=== PATIENT | male | born 1940 | race Caucasian/White ===

== ENCOUNTER → 2021-01-05 11:16 | Outpatient (CLI) | payer MEDICARE, OTHER, SELFPAY ==
--- NOTE | ~2021-01-05 | MR_ITS ---
EXAMINATION: MR cervical spine wo con DATE: 01/05/2021 12:27 INDICATION: Chronic neck pain radiating down the right arm. TECHNIQUE: Magnetic resonance imaging (MRI) of the cervical spine was performed without intravenous c ontrast. Sequences included sagittal T2-weighted FSE, sagittal T2-weighted FS FSE, sagittal T1-weight ed FSE, axial MERGE and axial T2-weighted FSE. 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 Mild vertebral body height loss at C5 and C6. Moderate disc height los s at C6-C7 and mild disc height loss at C5-C6. Bone marrow signal intensity is normal. Cord signal i ntensity is normal. Cervical soft tissues are unremarkable. The following disc levels are specificall y discussed: C2-C3: Disc is bulging eccentric to the left. There is mild right and moderate left uncovertebral juany nt osteoarthritis. There is moderate bilateral facet joint osteoarthritis. There is mild right and mo derate left neural foraminal stenosis. There is minimal central canal stenosis. C3-C4: The posterior disc space and bilateral uncovertebral and facet joints are fused. There is old right neural foraminal stenosis. There is no central canal stenosis. C4-C5: Disc is bulging. There is mild right and moderate left uncovertebral joint osteoarthritis. The re is moderate right and severe left facet joint osteoarthritis. There is moderate right and severe l eft neural foraminal stenosis. There is mild central canal stenosis with flattening of the ventral cronin rface of the cord. C5-C6: Eccentric to the left disc bulge. There is severe bilateral uncovertebral joint osteoarthritis . There is mild to moderate bilateral facet joint osteoarthritis. There is moderate to severe bilater al neural foraminal stenosis. There is mild to moderate central canal stenosis measuring 8 mm AP in t he mid sagittal plane. The disc bulge indents the left ventral surface of the cord with effacement of the majority of the CSF signal surrounding the cord. C6-C7: Disc is bulging. There is moderate right and severe left uncovertebral joint osteoarthritis. T here is mild right and moderate left facet joint osteoarthritis. There is moderate right and moderate to severe left neural foraminal stenosis. There is mild central canal stenosis. C7-T1: Disc is minimally bulging. There is mild bilateral uncovertebral joint osteoarthritis. There i s a right and severe left facet joint osteoarthritis. There is mild right and mild to moderate left n eural foraminal stenosis. There is no central canal stenosis. IMPRESSION: 1. 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 Reviewed, dictated and finalized at location [facility] [employer] IMPRESSION: 1. 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
== END ==
PROVIDERS: Visit Provider Nurse Practitioner Family
DX: M47.892 Other spondylosis, cervical region (principal); Z98.1 Arthrodesis status
CPT/HCPCS: 72141

== ENCOUNTER → 2021-02-09 01:20 | Outpatient (CLI) | payer MEDICARE, OTHER, SELFPAY ==
[2021-02-09 19:13] LABS: SARS-CoV-2 RNA PCR Negative
== END ==
PROVIDERS: PCP Family Medicine; Visit Provider Internal Medicine Gastroenterology
DX: Z01.812 Encounter for preprocedural laboratory examination (principal); Z20.822 Contact with and (suspected) exposure to COVID-19
CPT/HCPCS: C9803; U0003; U0005

== ENCOUNTER 2021-02-13 03:06 | Day surgery (SDC) | payer MEDICARE, OTHER, SELFPAY ==
[2021-01-31 14:18] VITALS: BMI 27.5
[2021-02-13 07:50] VITALS: BP 140/103; PULSE 88; RESP 17; TEMP 36.5; O2SAT 98; BMI 27.6
[2021-02-13] MEDS: LACTATED RINGERS 1,000 ML 150 ML IV CONT (08:05)
--- NOTE | 2021-02-13 08:25 | PM.HPGS ---
History of Present Illness History of Present Illness Consent: Risks, benefits, and alternatives have been discussed and questions answered. Patient agrees to proceed with procedure. Chief complaint: Neoplasm Screening, Hx of Colon Polyps Narrative: Arnalod Irby is a 81 year old male referred for colon cancer screening Review of Systems Review of Systems: All systems reviewed & are unremarkable except as noted in HPI and below PMFSH Past Medical History Medical History Anemia BMI 27.0-27.9,adult Elevated cholesterol Essential (primary) hypertension Screen for colon cancer Screening for prostate cancer Family History Family History Mother Hypertension Cerebrovascular accident Family history of coronary artery disease Sibling Family history of coronary artery disease Other Family history of cardiovascular disease Social History Social History Smoking status: Never smoker Alcohol intake: never Substance use: never Substance use type: does not use Living arrangements: with family Spiritual care concerns: No Meds Home Medications and Allergies Home Medications Medication Instructions Recorded Confirmed Type lisinopril 20 mg tablet 20 mg PO DAILY #90 tablet 12/10/20 02/13/21 Rx aspirin 81 mg PO DAILY 01/31/21 02/13/21 History ferrous sulfate [Iron (ferrous 325 mg PO DAILY 01/31/21 02/13/21 History sulfate)] omeprazole 20 mg PO DAILY 01/31/21 02/13/21 History Allergies Allergy/AdvReac Type Severity Reaction Status Date / Time No Known Allergies Allergy Mild Verified 02/13/21 07:49 Vital Signs Vital Signs - 24 hr 02/13/21 07:50 Temperature 36.5 C Pulse Rate 88 Respiratory Rate 17 Blood Pressure 140/103 H Pulse Oximetry 98 Exam Resp: Auscultation: clear to auscultation bilaterally Cardio: Rate: regular rate Rhythm: regular rhythm GI: GI Palp: Yes Soft to palpation and No Tenderness to palpation present (GI) Assessment and Plan Assessment and plan (1) Screen for colon cancer: Code(s): Z12.11 - Encounter for screening for malignant neoplasm of colon Status: Acute Assessment and Plan: Colonoscopy with possible biopsy or polypectomy or cautery or injection of substances.
--- NOTE | 2021-02-13 08:41 | WPDANESEPPF ---
Anes - Initial Pre Proc Eval Procedure: Operation Date: 02/13/21 09:00 Proposed Procedures p Screening Colonoscopy - Telly Escobedo MD Date/Time: 02/13/21 08:41 Surgeon: Telly Escobedo MD Pre Op Diagnosis: Neoplasm Screening, Hx of Colon Polyps Patient Data Age: 81 Gender: M Height: 5 ft 5 in Weight: 75.2 kg Last Vital Signs Temp 97.7 F 02/13/21 07:50 Pulse 88 02/13/21 07:50 Resp 17 02/13/21 07:50 BP 140/103 H 02/13/21 07:50 Pulse Ox 98 02/13/21 07:50 Allergies Allergy/AdvReac Type Severity Reaction Status Date / Time No Known Allergies Allergy Mild Verified 02/13/21 07:49 Home Medications Medication Instructions Recorded Confirmed Type lisinopril 20 mg tablet 20 mg PO DAILY #90 tablet 12/10/20 02/13/21 Rx aspirin 81 mg PO DAILY 01/31/21 02/13/21 History ferrous sulfate [Iron (ferrous 325 mg PO DAILY 01/31/21 02/13/21 History sulfate)] omeprazole 20 mg PO DAILY 01/31/21 02/13/21 History Patient hx anesthesia problems: none Family hx anesthesia problems: none PMFSH Past Medical History Medical History Anemia BMI 27.0-27.9,adult Elevated cholesterol Essential (primary) hypertension Screen for colon cancer Screening for prostate cancer Family History Family History Mother Hypertension Cerebrovascular accident Family history of coronary artery disease Sibling Family history of coronary artery disease Other Family history of cardiovascular disease Social History Social History Smoking status: Never smoker Alcohol intake: never Substance use: never Substance use type: does not use Living arrangements: with family Spiritual care concerns: No Anes - Eval Final PreProcedure Day of Procedure 02/13/21 08:41 Patient weight: normal Heart: regular rate and rhythm Lungs: clear to auscultation Airway: Mallampati scale class II Neurological: alert and oriented Last oral intake: >/= 8 hours ASA classification: II Emergent: no Anesthetic plan: proceed Anesthesia type and monitoring: general GIVS and standard monitoring Informed Consent: The patient's anesthetic plan and its attendant risks and benefits were discussed with the patient/family/POA. Questions were solicited and answers provided to the satisfaction of the patient/family/POA.
[2021-02-13 09:14] VITALS: BP 103/62; PULSE 72; RESP 19; O2SAT 98
[2021-02-13 09:24] VITALS: BP 141/76; PULSE 69; RESP 21; O2SAT 99
[2021-02-13 09:34] VITALS: BP 132/73; PULSE 72; RESP 21; O2SAT 100
== END 2021-02-13 09:45 | disposition home or self-care (01) ==
PROVIDERS: PCP Family Medicine; Visit Provider Internal Medicine Gastroenterology
PROC: 0DJD8ZZ Inspection of Lower Intestinal Tract, Via Natural or Artificial Opening Endoscopic (ICD-10-PCS; CPT 45378; principal; 2021-02-13 09:00)
DX: Z12.11 Encounter for screening for malignant neoplasm of colon (principal); I10 Essential (primary) hypertension; E78.00 Pure hypercholesterolemia, unspecified; D64.9 Anemia, unspecified; Z79.82 Long term (current) use of aspirin
CPT/HCPCS: G0121; J2704; J7120

== ENCOUNTER → 2023-05-13 14:02 | Outpatient (CLI) | payer MEDICARE, OTHER, SELFPAY ==
--- NOTE | ~2023-05-13 | US_ITS ---
EXAMINATION: US carotid duplex BI DATE: 05/13/2023 14:30 INDICATION: TIA TECHNIQUE: Grayscale, color Doppler, and pulsed Doppler images of the cervical carotid arteries were obtained. The degree of vessel stenosis is placed in one of the following categories: normal, <50%, 5 0-69%, >=70% but less than near-occlusion, near-occlusion, or total occlusion. Note that percent sten osis relative to normal distal artery lumen diameter is indirectly measured from velocity measurement s as described by Tom, et al. Radiology 2003; [id number]:340-346. Notes: Normal: Peak systolic velocity <125 centimeters/sec and no plaque <50%. Peak systolic velocity <125 ( EDV <40; ICA/CCA PSV ratio <2.0; used these factors only a tandem lesions or low cardiac output or co ntralateral disease) 50-69 %: PSV 125-230 (EDV 40-100; ratio 2-4) >= 70% but less than near occlusion: PSV greater than 230 (EDV > 100; ratio> 4.0) Near Occlusion: PSV that is variable; markedly narrowed lumen Occlusion: Absent flow on color/spectral Doppler and no lumen on mcdaniels scale. COMPARISON: Ultrasound dated 02/28/2016. FINDINGS: RIGHT: The right common carotid artery (CCA) peak systolic velocity (PSV) is 70 cm/s. The right internal car otid artery (ICA) PSV is 518 cm/s. The right ICA end-diastolic velocity (EDV) is 126 cm/s. The right ICA/CCA PSV ratio is 7.4. The external carotid artery (ECA) PSV is 223 cm/s. There is antegrade flow in the right vertebral artery. LEFT: The left CCA PSV is 115 cm/s. The left ICA PSV is 176 cm/s. The left ICA EDV is 39 cm/s. The left ICA /CCA PSV ratio is 1.5. The ECA PSV is 149 cm/s. There is antegrade flow in the left vertebral artery . IMPRESSION: 1. 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 2. 50-69% stenosis in the left internal carotid artery by sonographic criteria. Reviewed, dictated and finalized at location [] IMPRESSION: 1. Greater than or equal to 70% stenosis in the right internal carotid artery b y sonographic criteria. 2. 50-69% stenosis in the left internal carotid artery by sonographic criteria.
== END ==
PROVIDERS: PCP Family Medicine
DX: I65.23 Occlusion and stenosis of bilateral carotid arteries (principal)
CPT/HCPCS: 93880

== ENCOUNTER 2024-09-29 10:55 | Outpatient (CLI) | payer MEDICARE, OTHER, SELFPAY ==
--- NOTE | 2024-09-29 11:01 | ECG_ITS ---
Test Date: 2024-09-29 11:15:43 Measurements Intervals [place] Rate: 69 P: -8 DE: 159 QRS: 9 QRSD: 87 T: 134 QT: 378 QTc: 407 Interpretive Statements SINUS RHYTHM WITH SINUS ARRHYTHMIA MODERATE T-WAVE ABNORMALITY, CONSIDER HIGH LATERAL ISCHEMIA BASELINE ARTIFACT- I, II, AVR, AVF ABNORMAL ECG No previous ECG available for comparison Electronically Signed On 09-29-2024 11:23:23 RECENTERER by Sg Whitmore D.O.
== END 2024-09-29 10:56 | disposition home or self-care (01) ==
PROVIDERS: PCP Family Medicine; Visit Provider Family Medicine
DX: I10 Essential (primary) hypertension (principal); R94.31 Abnormal electrocardiogram [ECG] [EKG]
CPT/HCPCS: 93005